=== PATIENT | female | born 1950 | race Caucasian/White ===

== ENCOUNTER → 2018-10-18 | Outpatient (CLI) | payer MEDICARE, BC | END | disposition home or self-care (01) | LOC: CFH 10:37 | PROVIDERS: ATTEND Internal Medicine Cardiovascular Disease | DX: I51.7 Cardiomegaly (principal); Q21.1 Atrial septal defect | CPT/HCPCS: 78452; 93017; 93306; A9502 ==

== ENCOUNTER 2021-02-04 13:48 | Outpatient (CLI) | payer MEDICARE, BC | END 2021-02-04 23:59 | disposition home or self-care (01) | LOC: CFH 13:48 | PROVIDERS: ATTEND Internal Medicine Cardiovascular Disease | DX: I51.7 Cardiomegaly (principal); R06.02 Shortness of breath | CPT/HCPCS: 93306; 93356 ==